=== PATIENT | male | born 2005 | race Two or more races ===

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

== ENCOUNTER 2023-05-14 23:36 | Emergency (ER) | payer OTHER ==
[~2023-05-14] VITALS: Ht 177.8 cm; Wt 68.9 kg
[2023-05-15] MEDS ORDERED: ONDANSETRON ODT4 MG PO (04:37)
[2023-05-15] MEDS ORDERED: PEP-T-MED262 MG PO (04:37)
== END 2023-05-15 04:53 ==
LOC: EMR PED 23:36
DX: F10.929 Alcohol use, unspecified with intoxication, unspecified (principal); F12.129 Cannabis abuse with intoxication, unspecified

== ENCOUNTER 2025-04-25 22:41 | Emergency (ER) | payer OTHER ==
[~2025-04-25] VITALS: Ht 177.8 cm; Wt 73.5 kg
[~2025-04-25 22:41] MED LIST: ONDANSETRON ODT4 MG PO; PEP-T-MED262 MG PO
== END 2025-04-26 03:22 | disposition home or self-care (01) ==
LOC: ER 22:41
DX: L02.821 Furuncle of head [any part, except face] (principal); R42 Dizziness and giddiness

== ENCOUNTER 2025-11-01 11:36 | Emergency (ER) | payer OTHER ==
[~2025-11-01] VITALS: Ht 180.3 cm; Wt 73.5 kg
[2025-11-01] MEDS ORDERED: VITAMIN C500 M6 (12:33)
[2025-11-01] MEDS ORDERED: VITAMIN D310 MCG/1 M (12:34)
[2025-11-01] MEDS ORDERED: ONDANSETRON HCL 2 MG/ML VIAL IV STA (13:13)
[2025-11-01] MEDS ORDERED: 0.9 % SODIUM CHLORIDE 1,000 ML IV STA (13:13)
[2025-11-01] MEDS ORDERED: FAMOTIDINE/PF 20 MG/2 ML VIAL IV STA (13:13)
[2025-11-01 13:54] LABS: BASO % 0.3 % (0.1-1.2); EOS # 0.08 (0.04-0.54); EOS % 2.7 % (0.7-7.0); LYMPH # 1.08 (1.18-3.74); LYMPH % 35.9 % (19.3-53.1); MEAN PLATELET VOLUME 11.30 fl (9.4-12.4); MONO # 0.40 (0.24-0.82); NEUT # 1.43 (1.56-6.13); NEUT % 47.5 % (34.0-71.1); RED CELL DISTRIBUTION WIDTH 11.8 % (11.6-14.4)
[2025-11-01 13:56] LABS: MONO % 13.3 % (4.7-12.5)
[2025-11-01 13:57] LABS: ERYTHROCYTE SEDIMENTATION RATE 14 mm/hr (0-15)
[2025-11-01 14:21] LABS: ALT/SGPT 27.0 U/L (12-78); AST/SGOT 15.0 U/L (15-37); BILIRUBIN TOTAL 0.62 mg/dL (0.3-1.2); BUN CREA RATIO 12.0 (7.0-25.0); CREATININE SERUM 0.92 mg/dL (0.70-1.30); GFR 102.87; GLOBULINA 4.1 G/DL (2.4-3.5); GLUCOSE FASTING 89.0 mg/dL (65-100); INR 1.07; OSMOLALITY SERUM 278.0 MOSM/KG (275-295)
[2025-11-01 14:28] LABS: COVID-19 AG NEGATIVE (NEGATIVE)
[2025-11-01] MEDS ORDERED: MUCINEX D ER 11 EACH PO (15:18)
== END 2025-11-01 15:52 | disposition home or self-care (01) ==
LOC: ER 11:37
PROVIDERS: Physician Assistant Medical
DX: J98.8 Other specified respiratory disorders (principal); B34.8 Other viral infections of unspecified site; Z20.822 Contact with and (suspected) exposure to COVID-19